=== PATIENT | female | born 1960 | race Caucasian/White ===

== ENCOUNTER → 2017-04-30 | Outpatient (CLI) | payer BC ==
[~2017-04-30] MED LIST: ACCUPRIL40 MG PO; ASA325 MG PO; CELEBREX200 MG PO; ELAVIL-DPS50 MG PO; LASIX DPS40 MG PO; OXY IR DPS5 MG PO; PROTONIX40 MG PO; SENOKOT S1 TAB PO; TOPROL XL100 MG PO; TYLENOL DPS325 MG PO; ULTRAM DPS50 MG PO
== END | disposition home or self-care (01) ==
LOC: RAD.S 04-25 14:50
DX: Z12.31 Encounter for screening mammogram for malignant neoplasm of breast (principal)